=== PATIENT | female | born 1990 | race Caucasian/White ===

== ENCOUNTER 2017-02-02 13:16 | Emergency (ER) | payer SELFPAY ==
[~2017-02-02] VITALS: Ht 157.5 cm; Wt 81.8 kg
[2017-02-02 13:21] VITALS: BP 150/93; TEMP 99.1
[2017-02-02] MEDS ORDERED: FLEXERIL 1010 MG/TAB PO (15:00)
[2017-02-02] MEDS ORDERED: NAPROSYN500 MG PO (15:00)
[2017-02-02 15:14] VITALS: PULSE 71
== END 2017-02-02 15:15 | disposition home or self-care (01) ==
LOC: COL.ER 13:16
DX: M54.32 Sciatica, left side (principal); F17.210 Nicotine dependence, cigarettes, uncomplicated; F12.90 Cannabis use, unspecified, uncomplicated
CPT/HCPCS: J1885